=== PATIENT | male | born 1965 | race Asian ===

== ENCOUNTER 2018-06-17 20:27 | Inpatient (IN) | payer BC ==
[~2018-06-17] VITALS: Ht 170.2 cm; Wt 69.2 kg
[2018-06-17] MEDS ORDERED: TAMSULOSIN HYD0.4 M1 PO (23:12)
[2018-06-17] MEDS ORDERED: SYMBICORT1 AE3 INH (23:13)
[2018-06-17] MEDS ORDERED: ALBUTEROL0.63 MG/3 (23:14)
[2018-06-18] VITALS (7 sets, daily range): BP systolic 112–141; BP diastolic 62–83; Ht 170.2 cm; Wt 69.2 kg
[2018-06-18 01:42] LABS: microscopic required? NO
[2018-06-18 01:45] LABS: BASOPHIL % 0.2 % (0-2); PLATELET COUNT 237 x10^3mcL (130-400); RED CELL DISTRIBUTION WIDTH 12.9 % (11.5-14.5)
[2018-06-18 01:49] LABS: CALCIUM 8.9 mg/dL (8.5-10.1); CARBON DIOXIDE 28.5 mmol/L (21-32); CHLORIDE SERUM 101 mmol/L (98-107); CREATININE SERUM 1.3 mg/dL (0.7-1.3); GFR1 > 60 mL/min; GLUCOSE SERUM 170 mg/dL (74-106); MAGNESIUM 1.9 mg/dL (1.8-2.4); PHOSPHOROUS 3.7 mg/dL (2.5-4.9); POTASSIUM SERUM 3.7 mmol/L (3.5-5.1); SODIUM SERUM 139 mmol/L (136-145)
[2018-06-18 02:06] LABS: UA SPECIFIC GRAVITY <=1.005 (1.005-1.035); urine erythrocyte NEGATIVE (NEGATIVE)
[2018-06-18 02:36] LABS: AMPHETAMINE QUAL UR NONE DETECTED (See below)
[2018-06-18 08:35] LABS: BASOPHIL % 0.1 % (0-2); PLATELET COUNT 245 x10^3mcL (130-400)
[2018-06-18 11:14] LABS: CALCIUM 8.9 mg/dL (8.5-10.1); CARBON DIOXIDE 25.8 mmol/L (21-32); CHLORIDE SERUM 101 mmol/L (98-107); CREATININE SERUM 1.3 mg/dL (0.7-1.3); GFR1 > 60 mL/min; GLUCOSE SERUM 155 mg/dL (74-106); MAGNESIUM 2.1 mg/dL (1.8-2.4); PHOSPHOROUS 3.5 mg/dL (2.5-4.9); POTASSIUM SERUM 4.1 mmol/L (3.5-5.1); SODIUM SERUM 139 mmol/L (136-145)
[2018-06-19 05:29] VITALS: BP 118/74
[2018-06-19 06:33] LABS: CALCIUM 9.1 mg/dL (8.5-10.1); CARBON DIOXIDE 27.4 mmol/L (21-32); CHLORIDE SERUM 106 mmol/L (98-107); CREATININE SERUM 1.2 mg/dL (0.7-1.3); GFR1 > 60 mL/min; GLUCOSE SERUM 134 mg/dL (74-106); POTASSIUM SERUM 4.7 mmol/L (3.5-5.1); SODIUM SERUM 143 mmol/L (136-145)
[2018-06-19 06:43] LABS: BASOPHIL % 0 % (0-2); PLATELET COUNT 226 x10^3mcL (130-400); RED CELL DISTRIBUTION WIDTH 14.5 % (11.5-14.5)
[2018-06-19 09:46] LABS: PLATELET COUNT 231 x10^3mcL (130-400); RED CELL DISTRIBUTION WIDTH 14.3 % (11.5-14.5)
[2018-06-19 09:47] LABS: BASOPHIL % 0 % (0-2)
[2018-06-19] MEDS ORDERED: PREDNISONE20 MG PO ×2 (10:03→10:04)
[2018-06-19] MEDS ORDERED: SINGULAIR10 MG PO (10:04)
[2018-06-19] MEDS ORDERED: ZITHROMAX TRI-500 MG PO (10:05)
[2018-06-19 11:27] VITALS: BP 118/74
== END 2018-06-19 13:59 | disposition home or self-care (01) | DRG 189 ==
LOC: ED 20:27 → DU 23:50
PROVIDERS: Internal Medicine; ADMIT General Practice
DX: J96.00 Acute respiratory failure, unspecified whether with hypoxia or hypercapnia (principal); J45.901 Unspecified asthma with (acute) exacerbation; N40.0 Benign prostatic hyperplasia without lower urinary tract symptoms; Z88.8 Allergy status to other drugs, medicaments and biological substances
CPT/HCPCS: 83880; 87804; J2920; J2930; J7030; J7512; J7620; J7626